=== PATIENT | female | born 1955 | race Caucasian/White ===

== ENCOUNTER 2018-07-20 09:56 | Emergency (ER) | payer OTHER ==
[~2018-07-20] VITALS: Ht 167.6 cm; Wt 63.5 kg
[~2018-07-20 09:56] MED LIST: AMOCLA875 PO; ASPI325; ASPI325 PO; ASPI81CH PO; Acular3 ML RIGHTEYE; Aspir 8181 MG PO; Augmentin 875-1 EACH PO; BENZ100A PO; BUPR100; Bactrim Ds Tab1 EACH PO; CEFU250 PO; CYCL10 PO; DOXY100 PO; ERYT.5TO RIGHTEYE; FLUC150A PO; FLUO10 PO; FLUT.05NI; Flagyl500 MG PO; HYDACE5 PO; HYDACE5325 PO; HYDGUAL120 PO; HYDR1TAB94 PO; LORA10ER PO; MELO7.5 PO; META800 PO; Medi-Meclizine25 MG PO; NAPR220; NAPR500 PO; NEOPOLHCSU OT; NYST100TC TOP; Norco 5-325 Ta1 EACH PO; ONDA4ODT MM; ONDA8 PO; PREG25; PROM25 PO; PSEU120ER PO; Percocet 5-3251 EACH PO; Pyridium200 MG PO; RXALBOI INH; RXTRAM50 PO; SERT50 PO; SULTRIDS PO; Tobrex5 ML LEFTEYE; Vibramycin100 MG PO; ZOLP5 PO; Zithromax250 MG PO; Zofran Odt8 MG SL
[2018-07-20] MEDS ORDERED: Cleocin HCl300 MG PO (10:24)
== END 2018-07-20 10:39 | disposition home or self-care (01) ==
LOC: ER 09:56
DX: K02.9 Dental caries, unspecified (principal); Z79.899 Other long term (current) drug therapy; F17.200 Nicotine dependence, unspecified, uncomplicated
CPT/HCPCS: 99282

== ENCOUNTER 2018-10-13 18:28 | Emergency (ER) | payer OTHER ==
[~2018-10-13] VITALS: Ht 167.6 cm; Wt 63.5 kg
[~2018-10-13 18:28] MED LIST changes: +Cleocin HCl300 MG PO
[2018-10-13] MEDS ORDERED: PSEU120ER PO (20:00)
[2018-10-13] MEDS ORDERED: Cheratussin AC118 ML PO (20:00)
[2018-10-13] MEDS ORDERED: PRED20 PO (20:00)
== END 2018-10-13 20:06 | disposition home or self-care (01) ==
LOC: ER 18:28
DX: R05 Cough (principal); R09.81 Nasal congestion; F17.200 Nicotine dependence, unspecified, uncomplicated
CPT/HCPCS: 71046; 99283-25; J7512

== ENCOUNTER → 2019-03-30 | Outpatient (CLI) | payer OTHER ==
[~2019-03-30] MED LIST changes: +AZIT250 PO; +Cheratussin AC118 ML PO; +PRED20 PO
== END | disposition home or self-care (01) ==
LOC: LAB 16:19 → LAB SHORT 16:19
DX: N39.0 Urinary tract infection, site not specified (principal)
CPT/HCPCS: 87077; 87086; 87186

== ENCOUNTER → 2019-09-15 | Outpatient (CLI) | payer OTHER ==
[2019-09-17 15:10] LABS: HPV 16 Negative (Negative); HPV 18 Negative (Negative); HPV OTHER HR TYPES Negative (Negative)
== END | disposition home or self-care (01) ==
LOC: LAB 19:13 → LAB SHORT 19:13
PROVIDERS: Physician Assistant
DX: Z12.4 Encounter for screening for malignant neoplasm of cervix (principal)
CPT/HCPCS: 87624; G0123

== ENCOUNTER 2020-08-01 09:12 | Emergency (ER) | payer OTHER ==
[~2020-08-01] VITALS: Ht 167.6 cm; Wt 68.0 kg
[~2020-08-01 09:12] MED LIST changes: +ALEN70 PO; +DOCU100 PO; +HYDACE10B PO; +OMEP20ER PO
[2020-08-01 09:47] LABS: BASOPHILS ABSOLUTE AUTO 0.06 K/mm3 (0.00-0.23); BASOPHILS PERCENT AUTO 0 % (0-2); EOSINOPHILS ABSOLUTE AUTO 0.45 K/mm3 (0.00-0.68); EOSINOPHILS PERCENT AUTO 3 % (0-6); Hematocrit 43.4 % (33.0-51.0); Hemoglobin 14.1 g/dL (11.5-16.0); IMMATURE GRAN ABSOLUTE AUTO 0.04 K/mm3 (0.00-0.10); IMMATURE GRAN PERCENT AUTO 0 % (0-1); LYMPHOCYTES ABSOLUTE AUTO 2.94 K/mm3 (0.84-5.20); LYMPHOCYTES PERCENT AUTO 21 % (21-46); MONOCYTES ABSOLUTE AUTO 0.63 K/mm3 (0.16-1.47); MONOCYTES PERCENT AUTO 5 % (4-13); Mean Corpuscular HGB 29.5 pg (26.0-34.0); Mean Corpuscular HGB Conc 32.5 g/dL (31.5-36.5); Mean Corpuscular Volume 91 fL (80-100); Mean Platelet Volume 10.9 fL (9.1-12.4); NEUTROPHILS ABSOLUTE AUTO 9.75 K/mm3 (1.96-9.15); NEUTROPHILS PERCENT AUTO 70 % (41-73); Platelet Count 281 K/mm3 (150-400); RDW Coefficient Variation 13.2 % (11.7-14.2); RDW Standard Deviation 44.5 fL (35.1-46.3); Red Blood Cell Count 4.78 M/mm3 (3.80-5.20); White Blood Cell Count 13.87 K/mm3 (4.00-11.30)
[2020-08-01 10:11] LABS: Alanine Aminotransfer (ALT/SGP 21 U/L (12-78); Albumin, Blood 3.5 g/dL (3.4-5.0); Albumin/Globulin Ratio 0.9 (0.8-1.8); Alk Phos 66 U/L (50-136); Anion Gap 7 mmol/L (6-16); Aspartate Aminotrans (AST/SGOT 14 U/L (12-37); Bilirubin, Total 0.5 mg/dL (0.1-1.0); Blood Urea Nitrogen 17 mg/dL (8-24); Bun/Creatinine Ratio 20.6 (12.0-20.0); CO2, Blood 28 mmol/L (21-32); Calcium, Blood 9.7 mg/dL (8.5-10.1); Chloride, Blood 108 mmol/L (98-108); Creatinine, Blood 0.83 mg/dL (0.40-1.00); Globulin, Blood 3.9 g/dL (2.2-4.0); Glomerular Filtration Rate >60 (60-); Glucose, Blood 115 mg/dL (70-99); Sodium, Blood 143 mmol/L (136-145); Total Protein, Blood 7.4 g/dL (6.4-8.2)
[2020-08-01 10:25] LABS: Source, Urine Clean Catch
[2020-08-01 10:28] LABS: Appearance, Urine Turbid (Clear); Bilirubin, Urine Neg (Neg); Blood, Urine 5+ (Neg); Color, Urine Yellow (P-Yellow); Glucose Qualitative, Urine Neg (Neg); Ketones, Urine Neg (Neg); Leukocyte Esterase, Urine 1+ (Neg); Nitrite, Urine Neg (Neg); Protein, Urine 2+ (Neg); Urobilinogen, Urine NORM (Normal)
[2020-08-01 10:45] LABS: Bacteria Mod /hpf; Mucus Light (0-Heavy); Red Blood Cells, Urine TNTC /hpf (0-2); Squamous Epithelial Cells Few /hpf (Few)
[2020-08-01] MEDS ORDERED: OXYC5 PO (10:57)
[2020-08-01] MEDS ORDERED: ONDA4 PO (10:57)
== END 2020-08-01 11:08 | disposition home or self-care (01) ==
LOC: ER 09:12
PROVIDERS: Emergency Medicine
DX: N13.2 Hydronephrosis with renal and ureteral calculous obstruction (principal); F17.200 Nicotine dependence, unspecified, uncomplicated
CPT/HCPCS: 36415; 74176; 80053; 81001; 83690; 85025; 87086; 96374; 96375; 99284-25; J1170; J2405

== ENCOUNTER 2022-05-16 16:16 | Emergency (ER) | payer OTHER ==
[~2022-05-16] VITALS: Ht 167.6 cm; Wt 63.5 kg
[~2022-05-16 16:16] MED LIST changes: +ONDA4 PO; +OXYC5 PO
[2022-05-16] MEDS ORDERED: CEPH500 PO (19:28)
[2022-05-16] MEDS ORDERED: ONDA4ODT SL (19:28)
[2022-05-16] MEDS ORDERED: HYDR1TAB94 PO (19:28)
== END 2022-05-16 19:50 | disposition home or self-care (01) ==
LOC: ER 16:16
DX: L03.012 Cellulitis of left finger (principal); L03.011 Cellulitis of right finger; Z79.82 Long term (current) use of aspirin; Z79.899 Other long term (current) drug therapy; F17.200 Nicotine dependence, unspecified, uncomplicated
CPT/HCPCS: 90714; A9270

== ENCOUNTER 2024-09-12 11:13 | Emergency (ER) | payer OTHER ==
[~2024-09-12] VITALS: Ht 167.6 cm; Wt 64.4 kg
[~2024-09-12 11:13] MED LIST changes: +CEPH500 PO; +ONDA4ODT SL
[2024-09-12] MEDS ORDERED: Ondansetron 4 MG SoluTab SL ONE (12:00)
[2024-09-12] MEDS ORDERED: ACET500 PO (12:53)
[2024-09-12 13:00] VITALS: BP 114/72
[2024-09-12] MEDS ORDERED: RX Prepack 2 Tabs Ondansetron ODT 4MG UD ONE (13:15)
== END 2024-09-12 13:33 | disposition home or self-care (01) ==
LOC: ER 11:13
DX: S06.0X0A Concussion without loss of consciousness, initial encounter (principal); Z79.82 Long term (current) use of aspirin; Z79.2 Long term (current) use of antibiotics; F17.200 Nicotine dependence, unspecified, uncomplicated; Y09 Assault by unspecified means
CPT/HCPCS: 70450; 72125; 99284-25; A9270